=== PATIENT | female | born 1990 | race Caucasian/White ===

== ENCOUNTER 2016-08-01 12:52 | Emergency (ER) | payer MEDICAID ==
[2016-08-01 13:02] VITALS: BP 138/97
[2016-08-01 14:46] LABS: BILIRUBIN,URINE NEGATIVE (NEGATIVE)
[2016-08-01 14:48] LABS: HCG UR QUAL NEGATIVE; UA w/ MICROSCOPIC CHARGE YES
[2016-08-01 14:56] LABS: UR CULTURE IF IND INDICATED
--- NOTE | 2016-08-01 15:40 | ED Physician Documentation ---
History of Present Illness - Stated complaint Stated Complaint: CONGESTION/SOA - Chief complaint Chief Complaint: General - Additonal information Additional information: hx from pt 26 f denies preg to ER with congestions sinus pressure mostly maxillary greenish and slightly bloody nasal dc and a cough Review of Systems Nose: reports: Congestion, Sinus pressure / pain Respiratory: reports: Cough : denies: Now EGA PD PAST MEDICAL HISTORY - Past Medical History Past Medical History: Yes Psych: Anxiety - Past Surgical History Past Surgical History: No - Present Medications Home Medications: Ambulatory Orders Medication Instructions Recorded Confirmed Lorazepam [Ativan] 1 mg PO TID PRN #15 tablet 06/16/16 Amoxicillin/Potassium Clav 1 each PO Q12H #14 tablet 08/01/16 [Augmentin 875-125 Tablet] Fluticasone [Flonase] 1 sprays STEPHANE BID PRN #1 bottle 08/01/16 Ibuprofen [Motrin] 400 mg PO Q6H PRN #30 tablet 08/01/16 - Allergies Allergies/Adverse Reactions: Allergies Allergy/AdvReac Type Severity Reaction Status Date / Time grapefruit Allergy Edema Verified 06/16/16 21:32 - Social History Does the pt smoke?: Yes Smoking Status: Current every day smoker Does the pt drink ETOH?: Yes Does the pt have substance abuse?: No - Immunizations Immunizations are current?: Yes PD ED PE NORMAL - Vitals Vital signs reviewed: Yes - HEENT HEENT: Moist mucous membranes, Pharynx benign, Other (chad maxillary sinus swelling and TTP). No: Ears normal (dull no erythema bilaterally) - Cardiac Cardiac: RRR - Respiratory Respiratory: No respiratory distress, Clear bilaterally Results - Vitals Vitals: Vital Signs - 24 hr 08/01/16 12:57 Temperature 36.5 C Heart Rate 102 H Respiratory 16 Rate Blood Pressure 138/97 H O2 Saturation 96 Oxygen O2 Source Room air - Labs Labs: Laboratory Tests 08/01/16 14:30 Urine Color LT. YELLOW Urine Clarity CLEAR Urine pH 7.0 Ur Specific [place] <=1.005 Urine Protein NEGATIVE Urine Glucose (UA) NEGATIVE Urine Ketones NEGATIVE Urine Occult Blood NEGATIVE Urine Nitrite NEGATIVE Urine Bilirubin NEGATIVE Urine Urobilinogen 0.2 (NORMAL) Ur Leukocyte Esterase SMALL H Urine RBC None Seen Urine WBC 6-10 H Ur Squamous Epith Cells FEW Squamous Urine Bacteria Rare Ur Microscopic Review INDICATED Urine Culture Comments INDICATED Urine HCG, Qual NEGATIVE Departure - Departure Disposition: 01 Home, Self Care Clinical Impression: Alcoholism /alcohol abuse Sinusitis Qualifiers: Sinusitis location: unspecified location Chronicity: acute Recurrence: not specified as recurrent Qualified Code(s): J01.90 - Acute sinusitis, unspecified UTI (urinary tract infection) Qualifiers: Urinary tract infection type: acute cystitis Hematuria presence: without hematuria Qualified Code(s): N30.00 - Acute cystitis without hematuria Condition: Good Instructions: ED UTI Cystitis Female, ED Sinusitis Abx Tx Follow-Up: [facility] [Provider Group] [facility] [Provider Group] (call to establish care) Prescriptions: Amoxicillin/Potassium Clav [Augmentin 875-125 Tablet] 1 each PO Q12H #14 tablet Fluticasone [Flonase] 1 sprays STEPHANE BID PRN #1 bottle PRN Reason: allergies Ibuprofen [Motrin] 400 mg PO Q6H PRN #30 tablet PRN Reason: Pain Comments: Use the flonase one spray each nostril for 3 days The augmentin will treat the UTI as well as any sinus infection. Call the [facility] to establish care to address your other concerns. Stop drinking and stop smoking Discharge Date/Time: 08/01/16 15:53
== END 2016-08-01 15:53 | disposition home or self-care (01) ==
LOC: ED 12:52
DX: J01.90 Acute sinusitis, unspecified (principal); N30.00 Acute cystitis without hematuria; R07.9 Chest pain, unspecified; Z82.49 Family history of ischemic heart disease and other diseases of the circulatory system; F17.200 Nicotine dependence, unspecified, uncomplicated; F10.20 Alcohol dependence, uncomplicated
CPT/HCPCS: 81001; 81003; 81025; 87086; 99283; 99284

== ENCOUNTER 2016-09-13 14:20 | Outpatient (CLI) | payer MEDICAID | END 2016-09-13 14:21 | disposition home or self-care (01) | DX: Z00.00 Encounter for general adult medical examination without abnormal findings (principal); Z20.2 Contact with and (suspected) exposure to infections with a predominantly sexual mode of transmission ==

== ENCOUNTER 2017-05-30 05:13 | Emergency (ER) | payer MEDICAID ==
[2017-05-30] MEDS ORDERED: SODIUM CHLORIDE 0.9% 1,000 ML IV ONE (05:21)
[2017-05-30] MEDS ORDERED: LORazepam 2 MG/ML SYRINGE IVP STA (05:21)
--- NOTE | 2017-05-30 05:29 | ED Physician Documentation ---
History of Present Illness - Stated complaint Stated Complaint: ETOH WITHDRAWAL - Chief complaint Chief Complaint: General - History obtained from History obtained from: Patient, Family - History of Present Illness Timing: Today - Additonal information Additional information: Patient is a 26 year old female with a history of chronic alcohol abuse. According to father patient had been sober for 52 days. The patient went on a delgado over the last 3-4 days drinking about 3 bottles of liquor, a few bottles of champagne and other alcohol. Father states that the last drink was yesterday. Patient is only selectively answering questions. Patient states that she has been throwing up, but denies any fevers, or hallucinations. Review of Systems Constitutional: denies: Fever, Chills Eyes: reports: Reviewed and negative Ears: reports: Reviewed and negative Nose: reports: Reviewed and negative Throat: denies: Sore throat Cardiac: reports: Palpitations. denies: Chest pain / pressure Respiratory: denies: Cough, Wheezing GI: reports: Nausea, Vomiting : reports: Reviewed and negative Skin: denies: Rash, Lesions Neurologic: denies: Syncope, Confused, Altered mental status, Headache, Head injury Psychiatric: reports: Anxiety Immunocompromised: denies: Immunocompromised PD PAST MEDICAL HISTORY - Past Medical History Psych: Anxiety - Past Surgical History Past Surgical History: No - Present Medications Home Medications: Ambulatory Orders Medication Instructions Recorded Confirmed Ondansetron Odt [Zofran] 4 mg TL Q6H PRN #20 tablet 05/30/17 chlordiazePOXIDE [Librium] 25 mg PO DAILY #26 capsule 05/30/17 - Allergies Allergies/Adverse Reactions: Allergies Allergy/AdvReac Type Severity Reaction Status Date / Time grapefruit Allergy Edema Verified 05/30/17 05:22 - Social History Does the pt smoke?: Yes Smoking Status: Current every day smoker Does the pt drink ETOH?: Yes Does the pt have substance abuse?: No - Immunizations Immunizations are current?: Yes PD ED PE NORMAL - Vitals Vital signs reviewed: Yes - General General: Alert and oriented X 3, No acute distress, Well developed/nourished - HEENT HEENT: Atraumatic, PERRL, Pharynx benign - Neck Neck: Supple, no meningeal sign - Respiratory Respiratory: No respiratory distress, Clear bilaterally - Abdomen Abdomen: Soft, Non tender, Non distended - Derm Derm: Normal color, Warm and dry, No rash - Extremities Extremities: No deformity, No edema - Neuro Neuro: No motor deficit, No sensory deficit, Normal speech, Other (no tremor) Eye Opening: Spontaneous Motor: Obeys Commands Verbal: Oriented GCS Score: 15 PD ED PE EXPANDED - HEENT HEENT: Dry mucous membranes - Cardiac Cardiac: Tachy Results - Vitals Vitals: Vital Signs - 24 hr 05/30/17 05/30/17 05/30/17 05:17 05:56 06:19 Heart Rate 141 H 109 H 107 H Respiratory 15 15 20 Rate Blood Pressure 155/107 H 136/96 H 133/100 H O2 Saturation 99 100 99 Oxygen O2 Source Room air - EKG (time done) 0536 Rate: Rate (enter#) (110) Rhythm: Sinus tachycardia [place]: Normal Intervals: Normal [place] QRS: Normal Ischemia: Normal ST segments Compare to prior EKG: Old EKG unavailable - Labs Labs: Laboratory Tests 05/30/17 05/30/17 05/30/17 05:40 05:40 05:40 WBC 6.8 RBC 4.47 Hgb 13.8 Hct 41.0 MCV 91.7 MCH 30.9 MCHC 33.7 RDW 13.4 Plt Count 297 MPV 8.1 Neut # 3.3 Lymph # 2.7 [place] # 0.7 Eos # 0.0 Baso # 0.0 Absolute Nucleated RBC 0.01 Nucleated RBC % 0.1 Sodium 137 Potassium 3.8 Chloride 98 L Carbon Dioxide 26 Anion Gap 13.0 BUN 11 Creatinine 0.8 Estimated GFR (MDRD) 87 L Glucose 101 H Calcium 8.8 Phosphorus 3.9 Magnesium 2.1 Total Bilirubin 1.5 H AST 49 H ALT 38 Alkaline Phosphatase 85 Total Protein 7.9 Albumin 4.4 Globulin 3.5 Albumin/Globulin Ratio 1.3 Lipase 17 L TSH 2.69 Serum HCG, Qual Urine Color Urine Clarity Urine pH Ur Specific [place] Urine Protein Urine Glucose (UA) Urine Ketones Urine Occult Blood Urine Nitrite Urine Bilirubin Urine Urobilinogen Ur Leukocyte Esterase Ur Microscopic Review Urine Culture Comments Urine HCG, Qual Ethyl Alcohol 300.2 05/30/17 05/30/17 05:40 05:50 WBC RBC Hgb Hct MCV MCH MCHC RDW Plt Count MPV Neut # Lymph # [place] # Eos # Baso # Absolute Nucleated RBC Nucleated RBC % Sodium Potassium Chloride Carbon Dioxide Anion Gap BUN Creatinine Estimated GFR (MDRD) Glucose Calcium Phosphorus Magnesium Total Bilirubin AST ALT Alkaline Phosphatase Total Protein Albumin Globulin Albumin/Globulin Ratio Lipase TSH Serum HCG, Qual NEGATIVE Urine Color YELLOW Urine Clarity CLEAR Urine pH 6.0 Ur Specific [place] <=1.005 Urine Protein NEGATIVE Urine Glucose (UA) NEGATIVE Urine Ketones NEGATIVE Urine Occult Blood NEGATIVE Urine Nitrite NEGATIVE Urine Bilirubin NEGATIVE Urine Urobilinogen 0.2 (NORMAL) Ur Leukocyte Esterase NEGATIVE Ur Microscopic Review NOT INDICATED Urine Culture Comments NOT INDICATED Urine HCG, Qual NEGATIVE Ethyl Alcohol PD MEDICAL DECISION MAKING - ED course Complexity details: reviewed old records, reviewed results, re-evaluated patient , considered differential, d/w patient, d/w family ED course: Patient was seen and examined at bedside. Patient was tachycardic and placed on a monitor. ekg was performed and showed sinus tach. Labs were drawn and patient was treated with a fluid bolus, librium and ativan. Patient's tachycardia and blood pressure improved. Patient's blood alcohol level was found to be 300 so it was unlikely patient was going through full withdrawal. a lengthy discussion was had with the patient and her father concerning the options and the severity of withdrawal. Patient and father felt comfortable going home, as they have done this before. Patient was treated with an additional 25 mg of librium and was stable for discharge with outpatient follow up. Departure - Departure Disposition: 01 Home, Self Care Clinical Impression: Alcoholism /alcohol abuse Condition: Good Instructions: ED Withdrawal Alcohol Follow-Up: primary,care provider [Other] - Within 3 Days Prescriptions: chlordiazePOXIDE [Librium] 25 mg PO DAILY #26 capsule Ondansetron Odt [Zofran] 4 mg TL Q6H PRN #20 tablet PRN Reason: Nausea / Vomiting Comments: Your symptoms today are likely secondary to your alcohol abuse. Alcohol withdrawal can be very serious, even life threatening. If you are unable to go through the process with your family you should return to the emergency department for help. You should return to the emergency department for shakes, hallucinations, uncontrolled hr. new worseing or uncontrollable symptoms.
[2017-05-30] MEDS ORDERED: chlordiazePOXIDE 25 MG CAPSULE PO STA ×2 (05:31→06:29)
[2017-05-30] MEDS ORDERED: ONDANSETRON 4 MG/2 ML VIAL IVP STA (05:31)
[2017-05-30] MEDS ORDERED: ONDANSETRON 4 MG/2 ML VIAL ONE (05:37)
[2017-05-30] MEDS ORDERED: LORazepam 2 MG/ML VIAL ONE (05:37)
[2017-05-30] MEDS ORDERED: chlordiazePOXIDE 25 MG CAPSULE PO ONE ×2 (05:53→06:35)
[2017-05-30 06:05] LABS: BASOPHILS % (AUTO) 0.6 %; EOSINOPHILS % (AUTO) 0.6 %; HGB - HEMOGLOBIN 13.8 g/dL (12.0-16.0); LYMPHOCYTES # (AUTO) 2.7 10^3/uL (1.5-3.5); LYMPHOCYTES % (AUTO) 39.5 %; MEAN CORPUSCULAR HEMOGLOBIN 30.9 pg (27.0-31.0); MEAN CORPUSCULAR HGB CONC 33.7 g/dL (32.0-36.0); MEAN CORPUSCULAR VOLUME 91.7 fL (81.0-99.0); MEAN PLATELET VOLUME 8.1 fL (7.9-10.8); MONOCYTES # (AUTO) 0.7 10^3/uL (0.0-1.0); MONOCYTES % (AUTO) 10.7 %; NEUTROPHILS # (AUTO) 3.3 10^3/uL (1.5-6.6); NEUTROPHILS % (AUTO) 48.6 %; NUCLEATED RED BLOOD CELLS AUTO 0.1 /100WBC; RED BLOOD COUNT 4.47 10^6/uL (4.20-5.40); RED CELL DISTRIBUTION WIDTH 13.4 % (12.0-15.0); UNCORRECTED WHITE BLOOD COUNT 6.8 x10^3/uL; WHITE BLOOD COUNT 6.8 x10^3/uL (4.8-10.8)
[2017-05-30 06:07] LABS: ALBUMIN/GLOBULIN RATIO 1.3 (1.0-2.2); BILIRUBIN,TOTAL 1.5 mg/dL (0.2-1.0); CALCIUM 8.8 mg/dL (8.5-10.3); CREATININE 0.8 mg/dL (0.4-1.0); MAGNESIUM 2.1 mg/dL (1.7-2.8); PHOSPHORUS 3.9 mg/dL (2.5-4.6); POTASSIUM 3.8 mmol/L (3.5-5.0); TOTAL PROTEIN 7.9 g/dL (6.7-8.2)
[2017-05-30 06:20] LABS: BILIRUBIN,URINE NEGATIVE (NEGATIVE)
[2017-05-30 06:22] LABS: HCG UR QUAL NEGATIVE; UA CHARGE (STRIP ONLY) YES; UR CULTURE IF IND NOT INDICATED
[2017-05-30 06:31] VITALS: BP 125/96
== END 2017-05-30 06:45 | disposition home or self-care (01) ==
LOC: ED 05:13
DX: R11.2 Nausea with vomiting, unspecified (principal); F10.20 Alcohol dependence, uncomplicated; Y90.8 Blood alcohol level of 240 mg/100 ml or more; R00.0 Tachycardia, unspecified; F17.200 Nicotine dependence, unspecified, uncomplicated
CPT/HCPCS: 36415; 80053; 80306; 80320; 81003; 81025; 83690; 83735; 84100; 84443; 84703; 85025; 93005; 96361; 96374; 96375; 99284; A9270; J2060; 81001; 87086

== ENCOUNTER 2017-09-05 10:39 | Outpatient (CLI) | payer MEDICAID ==
[2017-09-05 11:17] LABS: BASOPHILS % (AUTO) 0.3 %; EOSINOPHILS % (AUTO) 0.5 %; HGB - HEMOGLOBIN 12.5 g/dL (12.0-16.0); LYMPHOCYTES # (AUTO) 2.2 10^3/uL (1.5-3.5); MEAN CORPUSCULAR HEMOGLOBIN 31.3 pg (27.0-31.0); MEAN CORPUSCULAR HGB CONC 34.3 g/dL (32.0-36.0); MEAN CORPUSCULAR VOLUME 91.4 fL (81.0-99.0); MEAN PLATELET VOLUME 8.9 fL (7.9-10.8); MONOCYTES # (AUTO) 0.6 10^3/uL (0.0-1.0); NEUTROPHILS # (AUTO) 6.1 10^3/uL (1.5-6.6); NEUTROPHILS % (AUTO) 68.2 %; PLT - PLATELET COUNT 216 10^3/uL (130-450); RED BLOOD COUNT 3.98 10^6/uL (4.20-5.40)
[2017-09-05 11:20] LABS: BILIRUBIN,URINE NEGATIVE (NEGATIVE); GLUCOSE, URINE (UA) NEGATIVE (NEGATIVE); KETONES,URINE (UA) NEGATIVE (NEGATIVE); LEUKOCYTE ESTERASE, URINE TRACE (NEGATIVE); NITRITE,URINE NEGATIVE (NEGATIVE); OCCULT BLOOD,URINE NEGATIVE (NEGATIVE); PH,URINE 6.5 PH (5.0-7.5); PROTEIN,URINE NEGATIVE (NEGATIVE); UROBILINOGEN,URINE 0.2 (NORMAL) E.U./dL (NORMAL)
[2017-09-05 11:23] LABS: CLARITY,URINE CLEAR (CLEAR)
[2017-09-05 11:37] LABS: CREATININE,URINE 25.8 mg/dL
[2017-09-05 11:38] LABS: BACTERIA,URINE Rare /HPF (None Seen); RBC,URINE 0-5 /HPF (0-5); SQUAMOUS EPITHELIAL CELL,UR FEW Squamous (<= Few)
[2017-09-05 11:49] LABS: ALBUMIN/GLOBULIN RATIO 1.4 (1.0-2.2); BILIRUBIN,TOTAL 0.7 mg/dL (0.2-1.0); CALCIUM 8.9 mg/dL (8.5-10.3); CREATININE 0.5 mg/dL (0.4-1.0); TOTAL PROTEIN 6.8 g/dL (6.7-8.2); URIC ACID 2.4 mg/dL (2.6-7.2)
[2017-09-05 12:00] LABS: TOTAL PROTEIN,URINE TIMED < 6 mg/dL
[2017-09-06 13:41] LABS: HIV AG/AB 4TH GEN NON-REACTIVE (NON-REACTIVE)
[2017-09-06 13:58] LABS: HEPATITIS C ANTIBODY NON-REACTIVE (NON-REACTIVE)
[2017-09-06 14:12] LABS: HEPATITIS B SURFACE ANTIGEN NON-REACTIVE (NON-REACTIVE)
== END 2017-09-05 10:40 | disposition home or self-care (01) ==
LOC: LAB 10:39
PROVIDERS: ATTEND Obstetrics & Gynecology
DX: F10.21 Alcohol dependence, in remission (principal); Z36.9 Encounter for antenatal screening, unspecified
CPT/HCPCS: 36415; 80053; 81001; 81599; 82570; 84156; 84550; 85025; 86762; 86803; 86850; 86900; 86901; 87086; 87340; 87389

== ENCOUNTER 2017-09-06 08:00 | Outpatient (CLI) | payer MEDICAID ==
[2017-09-06 11:13] LABS: COLLECTION TIME,URINE 1440 min; TOTAL VOLUME,URINE 1800 mL
[2017-09-06 11:26] LABS: CREATININE,URINE 73.9 mg/dL
== END 2017-09-06 08:01 | disposition home or self-care (01) ==
LOC: LAB.R 08:00
PROVIDERS: ATTEND Obstetrics & Gynecology
DX: F10.21 Alcohol dependence, in remission (principal)
CPT/HCPCS: 82575

== ENCOUNTER 2017-09-19 10:15 | Outpatient (CLI) | payer MEDICAID ==
--- NOTE | 2017-09-19 14:27 | Ultrasound Report ---
FIRST TRIMESTER OB ULTRASOUND: 09/19/2017 CLINICAL INDICATION: Abnormality on outside ultrasound. TECHNIQUE: Real-time scanning was performed with international account representative static images obtained. LAST MENSTRUAL PERIOD 06/30/2017 Clinical Age 11 weeks 4 days LMP US Age 11 weeks 5 days CRL EFW [place] -- EFW% [place] -- Heart Rate 154 bpm EDC 04/12/2018 LMP US EDC 04/05/2018 CRL BPD [place] -- HC [place] -- AC Hadlock -- FL Hadlock -- Presentation variable Placental Location posterior/mat Rt Cervical Length -- Amniotic Fluid -- FINDINGS There is a single viable intrauterine gestation, in variable position. heart rate is 154 BPM. The placenta is posterior, and appears unremarkable. No perigestational hemorrhage is identified. The gestational sac appears regular. By size, the fetus measures 11 weeks 5 days by crown rump length (11 weeks 4 days by LMP). No free fluid or adnexal lesion is appreciated. IMPRESSION: SINGLE VIABLE INTRAUTERINE GESTATION, WITH SIZE IN KEEPING WITH LMP DATING. NO EVIDENCE OF PERIGESTATIONAL HEMORRHAGE OR AMNIOTIC BANDS AT THIS TIME. TD: 09/19/2017 12:08 KERRY
== END 2017-09-19 10:16 | disposition home or self-care (01) ==
LOC: DI 10:15
PROVIDERS: ATTEND Obstetrics & Gynecology
DX: O28.3 Abnormal ultrasonic finding on antenatal screening of mother (principal); Z3A.11 11 weeks gestation of pregnancy
CPT/HCPCS: 76801

== ENCOUNTER 2017-10-21 11:10 | Outpatient (CLI) | payer MEDICAID | END 2017-10-21 11:11 | disposition home or self-care (01) | LOC: LAB.N 11:10 | PROVIDERS: ATTEND Obstetrics & Gynecology | DX: Z13.79 Encounter for other screening for genetic and chromosomal anomalies (principal) | CPT/HCPCS: 36415; 81511; 81599; 82105; 82677; 84702; 86336 ==

== ENCOUNTER 2017-11-01 14:44 | Outpatient (CLI) | payer OTHER, MEDICAID | END 2017-11-01 14:45 | disposition critical access hospital (66) | LOC: EMS 14:44 | PROVIDERS: ATTEND Surgery | DX: O99.89 Other specified diseases and conditions complicating pregnancy, childbirth and the puerperium (principal); S49.92XA Unspecified injury of left shoulder and upper arm, initial encounter; V43.53XA Car driver injured in collision with pick-up truck in traffic accident, initial encounter; Y92.413 State road as the place of occurrence of the external cause | CPT/HCPCS: A0425; A0429 ==

== ENCOUNTER 2017-11-01 14:47 | Emergency (ER) | payer OTHER, MEDICAID ==
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
[2017-11-01 16:05] VITALS: BP 117/82
== END 2017-11-01 16:17 | disposition home or self-care (01) ==
LOC: EDUNIT# → ED 14:47
DX: S41.122A Laceration with foreign body of left upper arm, initial encounter (principal); S40.812A Abrasion of left upper arm, initial encounter; V43.52XA Car driver injured in collision with other type car in traffic accident, initial encounter; Y92.411 Interstate highway as the place of occurrence of the external cause; O99.332 Smoking (tobacco) complicating pregnancy, second trimester; F17.200 Nicotine dependence, unspecified, uncomplicated; Z3A.17 17 weeks gestation of pregnancy
CPT/HCPCS: 12001; 99283

== ENCOUNTER 2017-11-24 07:37 | Outpatient (CLI) | payer MEDICAID ==
--- NOTE | 2017-11-25 14:53 | Ultrasound Report ---
OB ULTRASOUND: 11/24/2017 HISTORY: For anatomy scan. TECHNIQUE: Real-time scanning by the media aid with saved static images reviewed. Transabdominal approach for global evaluation. No transvaginal scanning performed. FINDINGS First ultrasound 08/23/2017, EGA by that ultrasound 21 weeks 1 day, YADI 2017. biometry today: Biparietal diameter 4.9 cm, 20 weeks 5 days. Head circumference 18.7 cm, 21 weeks 0 days. Abdominal circumference 15.6 cm, 20 weeks 5 days. Femur length 3.4 cm, 20 weeks 5 days. Age by composite ultrasound measurements today 20 weeks 6 days, YADI 04/07/2018. Estimated weight 375 grams, 26th percentile. cardiac activity 148 BPM. Cephalic presentation. Placenta posterior with 3-vessel umbilical cord. Marginal cord insertion onto the placenta. Cervix long and closed 4.9 cm. Amniotic fluid volume subjectively normal. A survey of anatomy includes facial and intracranial structures, spine, heart and outflow tracts, stomach, diaphragm, kidneys, bladder, cord insertion, and all 4 extremities. No anomalies are detected. Adnexal structures unremarkable. IMPRESSION: SINGLE INTRAUTERINE GESTATION. AGE BY COMPOSITE ULTRASOUND MEASUREMENTS TODAY 20 WEEKS 6 DAYS, CONCORDANT WITH THE EXPECTED AGE BY FIRST ULTRASOUND. NO ANOMALIES ARE IDENTIFIED. THERE IS A MARGINAL INSERTION OF THE UMBILICAL CORD ONTO THE POSTERIOR PLACENTA. TD: 11/24/2017 16:13 MTDEryn
== END 2017-11-24 07:38 | disposition home or self-care (01) ==
LOC: DI 07:37
PROVIDERS: ATTEND Obstetrics & Gynecology
DX: Z36.9 Encounter for antenatal screening, unspecified (principal)
CPT/HCPCS: 76811

== ENCOUNTER 2018-01-01 14:24 | Outpatient (CLI) | payer MEDICAID ==
[2018-01-01 14:47] LABS: BILIRUBIN,URINE NEGATIVE (NEGATIVE); GLUCOSE, URINE (UA) NEGATIVE (NEGATIVE); KETONES,URINE (UA) NEGATIVE (NEGATIVE); LEUKOCYTE ESTERASE, URINE NEGATIVE (NEGATIVE); NITRITE,URINE NEGATIVE (NEGATIVE); OCCULT BLOOD,URINE NEGATIVE (NEGATIVE); PROTEIN,URINE NEGATIVE (NEGATIVE); UROBILINOGEN,URINE 0.2 (NORMAL) E.U./dL (NORMAL)
[2018-01-01 14:48] LABS: CLARITY,URINE CLEAR (CLEAR)
[2018-01-01 14:56] LABS: BACTERIA,URINE Rare /HPF (None Seen); RBC,URINE None Seen /HPF (0-5); SQUAMOUS EPITHELIAL CELL,UR MANY Squamous (<= Few)
[2018-01-01 15:52] LABS: MEAN CORPUSCULAR HEMOGLOBIN 31.8 pg (27.0-31.0); MEAN CORPUSCULAR HGB CONC 33.9 g/dL (32.0-36.0); MEAN CORPUSCULAR VOLUME 93.7 fL (81.0-99.0); MEAN PLATELET VOLUME 8.6 fL (7.9-10.8); RED BLOOD COUNT 3.48 10^6/uL (4.20-5.40); RED CELL DISTRIBUTION WIDTH 13.1 % (12.0-15.0); WHITE BLOOD COUNT 12.3 x10^3/uL (4.8-10.8)
== END 2018-01-01 14:25 | disposition home or self-care (01) ==
LOC: LAB 14:24
PROVIDERS: ATTEND Obstetrics & Gynecology
DX: Z34.90 Encounter for supervision of normal pregnancy, unspecified, unspecified trimester (principal)
CPT/HCPCS: 36415; 81001; 82950; 85027; 86850

== ENCOUNTER 2018-02-03 13:11 | Outpatient (CLI) | payer MEDICAID ==
--- NOTE | 2018-02-03 16:58 | Ultrasound Report ---
Procedure Date: 02/03/2018 Accession Number: [id number] / [id number] Procedure: US - OB F/U or Repeat CPT Code: FULL RESULT: EXAM: COMPLETE OBSTETRICAL ULTRASOUND EXAM DATE: 02/03/2018 02:06 PM. CLINICAL HISTORY: anatomic survey. COMPARISON: OB detailed evaluation 11/24/2017 7:54 am. TECHNIQUE: Real-time sonographic evaluation of the fetus performed by the employee relations administrator. Multiple public health representative static images were saved for review. DATING: Established EGA 3 weeks/2 days with YADI 04/05/18 based on First ultrasound 09/19/17.. EGA 3 weeks/4 days with YADI 04/03/18 based on the current ultrasound. GENERAL EVALUATION Leyva . Cardiac activity: 146 bpm. movement: Visualized. Presentation: Cephalic. Placenta: Posterior position. No evidence for previa. Umbilical cord: 3 vessel cord. Central placental cord origin. Amniotic fluid: Subjectively normal. MVP 4.3 cm. BIOMETRY Bi-Parietal Diameter (BPD): 7.9 cm, 32 weeks/0 days Head Circumference (HC): 29.5 cm, 32 weeks/4 days Abdominal Circumference (AC): 26.2 cm, 30 weeks/6 days Femur Length (FL): 59 cm, 30 weeks/6 days The placenta is 3.9 cm away from the cervix. The cord insertion appears normal. Estimated Weight: 1658 gm. MATERNAL STRUCTURES Uterus: Unremarkable. Cervix: Long and closed. Transabdominal length 3.70 cm. Right ovary/adnexa: Unremarkable. Left ovary/adnexa: Unremarkable. Free fluid: None. IMPRESSION: 1. Leyva live intrauterine with gestational age 31 weeks and 4 days based on current ultrasound. 2. Estimated weight is within expected limits for assigned dating. 3. Subjectively normal cord insertion. RADIA
== END 2018-02-03 13:12 | disposition home or self-care (01) ==
LOC: DI 13:11
PROVIDERS: ATTEND Obstetrics & Gynecology
DX: Z36.2 Encounter for other antenatal screening follow-up (principal)
CPT/HCPCS: 76816

== ENCOUNTER 2018-03-18 13:05 | Outpatient (CLI) | payer MEDICAID ==
--- NOTE | 2018-03-18 17:13 | Ultrasound Report ---
Reason: ENCOUNTER FOR SCREENING FOR GROWTH Procedure Date: 03/18/2018 Accession Number: [id number] / [id number] Procedure: US - OB F/U or Repeat CPT Code: FULL RESULT: EXAM: COMPLETE OBSTETRICAL ULTRASOUND EXAM DATE: 03/18/2018 02:19 PM. CLINICAL HISTORY: anatomic survey. COMPARISON: OB follow up or repeat 02/03/2018 1:38 PM OB detailed evaluation 11/24/2017 7:54 AM. TECHNIQUE: Real-time sonographic evaluation of the fetus performed by the day care director. Multiple packaging sales representative static images were saved for review. DATING: Established EGA 36 weeks and 6 days with YADI 04/05/2018 based on first ultrasound. EGA 36 weeks and 5 days with YADI 04/06/2018 based on the current ultrasound. GENERAL EVALUATION Leyva . Cardiac activity: 130 bpm. movement: Visualized. Presentation: Cephalic. Placenta: Right lateral position. No evidence for previa. Amniotic fluid: Subjectively normal. BIOMETRY Bi-Parietal Diameter (BPD): 9 cm, 36 weeks 3 days Head Circumference (HC): 33.9 cm, 39 weeks 0 days Abdominal Circumference (AC): 32.5 cm, 36 weeks 3 days Femur Length (FL): 7.1 cm, 36 weeks 3 days Estimated Weight: 2974 gm, 36 percentile for 36 weeks 5 days. MATERNAL STRUCTURES Uterus: Unremarkable. Cervix: Long and closed. Transabdominal length 4.7 cm. The ovaries were not well seen. No free fluid is identified. IMPRESSION: 1. Leyva live intrauterine with gestational age weeks/days based on source of assigned dating. 2. Estimated weight is within expected limits for assigned dating. 3. Normal anatomic survey. No anatomic abnormalities are detected at this time. RADIA
== END 2018-03-18 13:06 | disposition home or self-care (01) ==
LOC: DI 13:05
PROVIDERS: ATTEND Obstetrics & Gynecology
DX: Z36.4 Encounter for antenatal screening for fetal growth retardation (principal)
CPT/HCPCS: 76816

== ENCOUNTER 2018-03-18 23:57 | Outpatient (CLI) | payer MEDICAID ==
[2018-03-19 00:10] VITALS: BP 122/85
== END 2018-03-19 00:40 | disposition home or self-care (01) ==
LOC: WFO 23:57 → FBP 23:59 → WFO 03-19 00:40
PROVIDERS: ATTEND Obstetrics & Gynecology
DX: O99.89 Other specified diseases and conditions complicating pregnancy, childbirth and the puerperium (principal); M53.3 Sacrococcygeal disorders, not elsewhere classified; Z3A.00 Weeks of gestation of pregnancy not specified
CPT/HCPCS: 99212

== ENCOUNTER 2018-03-20 09:51 | Outpatient (CLI) | payer MEDICAID | END 2018-03-20 09:52 | disposition home or self-care (01) | LOC: LAB.R 09:51 | PROVIDERS: ATTEND Obstetrics & Gynecology | DX: Z36.85 Encounter for antenatal screening for Streptococcus B (principal) | CPT/HCPCS: 87077; 87081 ==

== ENCOUNTER 2018-04-01 13:42 | Outpatient (CLI) | payer MEDICAID ==
[2018-04-01 13:59] VITALS: BP 121/80
[2018-04-01 14:46] LABS: RUPTURE OF MEMBRANES PLUS NEGATIVE (NEGATIVE)
--- NOTE | 2018-04-01 15:41 | PROVIDER PROGRESS NOTE ---
Subjective - Prog Note Date Prog Note Date: 04/01/18 Prog Note Time: 16:00 - Subjective Subjective: Mrs. Lind is a 27-year-old white 2 para 0010 (EAB x1) at 39 weeks and 2 days gestation. Who reports possible leaking fluid for the past 4 hours. She has had intermittent contractions but nothing organized into a pattern. She reports movement. She reports no symptoms consistent with preeclampsia. She is known to be GBS positive. She has no fevers chills or vaginal discharge. She is status post LEEP procedure in January 2017 for DUNCAN 3. Objective - Vital Signs/Intake & Output Vital Signs: Vital Signs x48h Temp Pulse Resp BP Pulse Ox 04/01/18 13:58 98.6 F 92 16 121/80 99 - Lab Results Other Labs: Lab Results x24hrs 04/01/18 Range/Units Unknown Membranes Rupture NEGATIVE (NEGATIVE) Exam - Exam Vital Signs: Vital Signs (72 hours) 04/01/18 13:58 Temperature 98.6 F Heart Rate [ 92 Brachial] Respiratory 16 Rate Blood Pressure 121/80 [Left Brachial artery] O2 Saturation 99 General: Alert, Oriented x3, No acute distress HEENT: Atraumatic, Mucous membr. moist/pink Abdomen: No tenderness, Other (Uterus is of appropriate size and nontender. Vertex presentation confirmed by Pierre's. Mild to minimal contractions) Assessment/Plan - Assessment/Plan Assessment: Patient is a term with not currently in labor and membranes intact. She may be approaching the prodrome of labor and was given encouragement. Plan: Patient discharged home with instructions. She understands if regular contractions develop every 5 minutes for 2 hours that she should return. She is also to return if she believes her membranes or leaking.
== END 2018-04-01 15:23 | disposition home or self-care (01) ==
LOC: WFO 13:42 → FBP 13:43 → WFO 15:23
PROVIDERS: ATTEND Obstetrics & Gynecology
DX: O99.820 Streptococcus B carrier state complicating pregnancy (principal); O99.89 Other specified diseases and conditions complicating pregnancy, childbirth and the puerperium; D06.9 Carcinoma in situ of cervix, unspecified; Z3A.39 39 weeks gestation of pregnancy
CPT/HCPCS: 84112; 99213

== ENCOUNTER 2018-04-02 18:19 | Inpatient (IN) | payer MEDICAID ==
[2018-04-02] MEDS ORDERED: OXYTOCIN/SODIUM CHLORIDE 250 ML IV ONE (19:20)
[2018-04-02] MEDS ORDERED: SODIUM CHLORIDE FLUSH 0.9% 10 ML SYRINGE IVP PRN (19:20)
[2018-04-02] MEDS ORDERED: ONDANSETRON 4 MG/2 ML VIAL IVP PRN ×2 (19:20→22:38)
[2018-04-02] MEDS ORDERED: fentaNYL 100 MCG/2 ML VIAL IVP PRN (19:20)
--- NOTE | 2018-04-02 19:46 | HISTORY & PHYSICAL EXAMINATION ---
Admit History - Visit Reason Visit Reason: Contractions, Other (DUNCAN 3 History of alcoholism) - : 2 Parity: 0 Premature: 0 Ectopic: 0 : 1 Care: positive: Other ( [facility]) Risk/History: positive: Other (Neglected DUNCAN 3 DUNCAN [address] Walker by colposcopic biopsy. LEEP procedure was recommended but patient was lost due to follow-up secondary to alcohol abuse. She was referred to gynecologic oncology, Dr. 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 Periodic colposcopy has been performed and no evidence of invasion. Patient had a history of alcohol abuse and after inpatient treatment has been sober.) Complications This : positive: None, Other (GBS culture positive) Smoking Status: Current every day smoker - Mother's Labs Mother's Blood Type: positive: A Mother's RH: positive: Positive GBS: positive: Group B Strep Positive Rubella Status: positive: Immune (Other pertinent labs: Urinalysis normal; Quad marker normal; Hepatitis B surface antigen negative 1 hour Glucola check normal 89; Baseline's hemoglobin 12.3, platelets 238;) Meds/Allgy - Home Medications Home Medications: Ambulatory Orders Medication Instructions Recorded Confirmed Pnv95/Ferrous Fumarate/FA 1 each PO 11/01/17 [ Formula] - Allergies Allergies/Adverse Reactions: Allergies Allergy/AdvReac Type Severity Reaction Status Date / Time grapefruit AdvReac Edema Verified 11/01/17 14:53 Review of Systems - Constitutional Constitutional: reports: Fatigue - Eyes Eyes: reports: Other (No symptoms reported currently) - Ears, Nose & Throat Ears, Nose & Throat: reports: Other (No symptoms reported currently) - Cardiovascular Cariovascular: reports: Other (No symptoms reported currently) - Respiratory Respiratory: reports: Other (No symptoms reported currently) - Genitourinary Genitourinary: reports: Other (No symptoms reported currently) - Musculoskeletal Musculoskeletal: reports: Other (No symptoms reported currently) - Integumentary Integumentary: reports: Other (No symptoms reported currently) - Neurological Neurological: reports: Other (No symptoms reported currently) - Psychiatric Psychiatric: reports: Other (No symptoms reported currently) - Endocrine Endocrine: reports: Other (No symptoms reported currently) - Hematologic/Lymphatic Hematologic/Lymphatic: reports: Other (No symptoms reported currently) - All Other Systems All Other Systems: reports: Other (No symptoms reported currently) Physical - Abdominal Exam Vital Signs: Temp Pulse Resp BP Pulse Ox 97.9 F 70 18 126/77 99 04/02/18 18:31 04/02/18 18:31 04/02/18 18:31 04/02/18 18:31 04/02/18 18:31 Contraction Intensity: positive: Moderate Uterine Resting Tone: positive: Soft - Monitoring Strip Review: positive: Category I - Presentation Presentation: positive: Vertex - Vaginal Exam Membranes: positive: Membranes intact Dilation (in cm): 4 Effacement (%): 80% Station: positive: 0 Cervical Position: positive: Midposition - Speculum Exam Speculum Exam Performed: positive: No - Other Notes Labor Progress Note/Additional Text: HEENT exam: Supple neck no thyromegaly dentition in good repair moist mucous membranes Lungs clear to auscultation Cardiovascular: Regular heartbeat no significant murmur gallop or rub Abdomen: No organomegaly no right upper quadrant tenderness no other tenderness Uterus: Moderate contractions every 5 minutes; normal resting tone External genitalia no lesions Cervix 4 cm 0 station (nursing exam) Neurologic: Sensory and motor function grossly intact; patellar reflexes 2+ and equal Skin: No rashes or lesions Extremities: No pedal edema Assessment: Patient has made significant change from last night's cervical exam. She is most likely in the latent phase of labor. Cervix is inducible. Given her GBS status penicillin prophylaxis will begin now per protocol. weight is estimated at 7.5 pounds and the bony pelvis seems adequate. heart tracing is category 1 and there is no concerns about well-being. Plan: Admit Begin GBS prophylaxis Analgesic as desired. Plan for Labor - Plan For Labor I expect patient to be DC'd or transferred within 96 hours.: Yes Plan for Labor: * GBS prophylaxis; * Analgesia is required; * Anticipate vaginal delivery
[2018-04-02] MEDS ORDERED: PENICILLIN G POTASSIUM 5,000,000 UNIT in SODIUM CHLORIDE 0.9% MINIBAG 100 ML IV SCH (20:00)
[2018-04-02] MEDS: LACTATED RINGERS 1,000 ML IV SCH ×2 (20:16→23:14)
[2018-04-02 20:32] LABS: BASOPHILS # (AUTO) 0.1 10^3/uL (0.0-0.1); BASOPHILS % (AUTO) 0.9 %; EOSINOPHILS # (AUTO) 0.1 10^3/uL (0.0-0.7); EOSINOPHILS % (AUTO) 0.5 %; HGB - HEMOGLOBIN 12.1 g/dL (12.0-16.0); LYMPHOCYTES # (AUTO) 3.3 10^3/uL (1.5-3.5); LYMPHOCYTES % (AUTO) 22.5 %; MEAN CORPUSCULAR HEMOGLOBIN 30.9 pg (27.0-31.0); MEAN CORPUSCULAR HGB CONC 33.7 g/dL (32.0-36.0); MEAN CORPUSCULAR VOLUME 91.9 fL (81.0-99.0); MEAN PLATELET VOLUME 9.7 fL (7.9-10.8); MONOCYTES # (AUTO) 0.8 10^3/uL (0.0-1.0); MONOCYTES % (AUTO) 5.2 %; NEUTROPHILS # (AUTO) 10.5 10^3/uL (1.5-6.6); NEUTROPHILS % (AUTO) 70.9 %; PLT - PLATELET COUNT 283 10^3/uL (130-450); RED BLOOD COUNT 3.91 10^6/uL (4.20-5.40); RED CELL DISTRIBUTION WIDTH 13.5 % (12.0-15.0); WHITE BLOOD COUNT 14.9 x10^3/uL (4.8-10.8)
--- NOTE | 2018-04-02 20:39 | PROVIDER PROGRESS NOTE ---
Labor Progress Note - Uterine Monitoring Uterine Monitoring Mode: positive: External toco Contraction Frequency (min/apart): Q 3-5min Contraction Intensity: positive: Mild to moderate Uterine Resting Tone: positive: Soft - Monitoring Monitor Mode: positive: External ultrasound Heart Rate Baseline: 135-140 Heart Rate Variability: positive: Moderate (6-25 bmp) Accelerations: positive: Present, 15x15 Decelerations: positive: None Strip Review: positive: Category I - Vaginal Exam Dilation (in cm): 6 Effacement (%): 100% Station: 0 Cervical Position: Anterior - Labor Progress Note Labor Progress Note/Additional Text: Patient entering active phase of labor. No well-being concerns First bag of IV penicillin being infused
[2018-04-02] MEDS ORDERED: fent/BUPIV 2 MCG/0.125% 250 ML EP ONE (21:25)
[2018-04-02] MEDS ORDERED: LACTATED RINGERS 500 ML IV SCH (22:38)
[2018-04-02] MEDS ORDERED: NALOXONE 0.4 MG/ML VIAL IVP PRN (22:38)
[2018-04-02] MEDS ORDERED: NALBUPHINE 10 MG/ML AMP IVP PRN (22:38)
[2018-04-02] MEDS ORDERED: fent/BUPIV 2 MCG/0.125% 250 ML EP PRN (22:38)
[2018-04-02] MEDS ORDERED: diphenhydrAMINE INJ 50 MG/ML VIAL IVP PRN (22:38)
[2018-04-02] MEDS ORDERED: ePHEDrine 50 MG/ML VIAL IVP PRN (22:38)
[2018-04-02] MEDS ORDERED: METOCLOPRAMIDE 10 MG/2 ML VIAL IVP PRN (22:38)
[2018-04-03] MEDS ORDERED: PENICILLIN G POTASSIUM 2,500,000 UNIT in SODIUM CHLORIDE 0.9% 100ML 100 ML IV SCH ×2
[2018-04-03] MEDS ORDERED: SODIUM CHLORIDE FLUSH 0.9% 10 ML SYRINGE IVP SCH (01:00)
--- NOTE | 2018-04-03 01:55 | PROVIDER PROGRESS NOTE ---
Labor Progress Note - Uterine Monitoring Contraction Frequency (min/apart): q3-5 Contraction Intensity: positive: Moderate Uterine Resting Tone: positive: Soft - Monitoring Monitor Mode: positive: External ultrasound Heart Rate Baseline: 120-125 Heart Rate Variability: positive: Minimal (0-5 bpm), Moderate (6-25 bmp) Accelerations: positive: Present, 15x15 Decelerations: positive: None Strip Review: positive: Category I - Vaginal Exam Dilation (in cm): 10 Effacement (%): 100% Station: 0 Cervical Position: Anterior - Labor Progress Note Labor Progress Note/Additional Text: Though the contractions are difficult to track, the patient is progressing and now entering the second stage of labor. The membranes were artificially ruptured and there is clear fluid. Anticipate vaginal delivery soon. and therefore we will not place IUPC at this time. Patient enjoys excellent pain control with epidural.
--- NOTE | 2018-04-03 04:25 | PROVIDER PROGRESS NOTE ---
Labor Progress Note - Uterine Monitoring Uterine Monitoring Mode: positive: External toco Contraction Frequency (min/apart): q4-5min Contraction Intensity: positive: Moderate Uterine Resting Tone: positive: Soft - Monitoring Monitor Mode: positive: External ultrasound Heart Rate Baseline: 120 Heart Rate Variability: positive: Minimal (0-5 bpm) Accelerations: positive: Present, 15x15 Decelerations: positive: None Strip Review: positive: Category II - Vaginal Exam Dilation (in cm): 10 Effacement (%): 100% Station: 3 Cervical Position: Anterior - Labor Progress Note Labor Progress Note/Additional Text: Patient was allowed to labor down. We will begin pushing shortly. Patient rep orts nausea with clear emesis. Zofran given
[2018-04-03] MEDS ORDERED: MINERAL OIL LIGHT 10 ML MC ONE (04:37)
[2018-04-03] MEDS ORDERED: LIDOCAINE 1% 50 ML MDV ONE (04:40)
--- NOTE | 2018-04-03 04:54 | DELIVERY NOTE ---
Delivery Note - Labor Labor: positive: Spontaneous - Delivery Method Delivery Method: positive: Spontaneous vaginal delivery - Presentation Presentation: positive: Vertex, OA - occiput anterior - Nuchal Cord Nuchal Cord: positive: None (Bandolier cord) - Anesthetic Anesthetic Type: Anesthetic: positive: Lidocaine - 1% plain Volume: positive: 4cc - Amniotic Fluid Description Amniotic Fluid Description: positive: Clear - Episiotomy Type Episiotomy Type: positive: None - Laceration Laceration: positive: Other (Left labia minor, shallow) - Suture Suture Type: positive: Vicryl Suture Size: positive: 2-0 - Delivery Outcome Delivery Outcome: positive: Livebirth - : positive: Placed in direct skin contact with mother sex: positive: Male : weight = 7lbs 2oz; Apgars 8/9 - Cord Cord: positive: 3 vessels (Cord fragile and sheared during the third stage of labor) - Placenta Placenta: positive: Intact, Manual removal (Placenta grade 3; easy removal) - Estimated Blood Loss Estimated Blood Loss (in cc): 200 - Post Delivery Events Post Delivery Events: positive: No post delivery events - Delivery Comments (Free Text/Narrative) Delivery Comments (Free Text/Narrative): Patient achieved completion at roughly 1:30 AM and was very comfortable with epidural. She was allowed to labor down. With the head at OA and +3 station she began to push with good effort and smoothly brought the head to the perineum. Push & stretch method was used with lubricant. Head atraumatically crowned and shoulders were delivered without difficulty. was brought to maternal chest and placed skin to skin. Mother baby and family all bonded well. When the cord stopped pulsing it was doubly clamped then transected. Cord blood sample was sent. Cervix and vagina intact to inspection. There was a small circumferential shallow tear on the anterior of the left labia minor. This was uneventfully repaired with interrupted stitches of 2-0 Vicryl. All sponge needle and instrument counts were confirmed as correct. Maternal blood type Rh+. A total of 2 doses of penicillin were given during the course of labor.
[2018-04-03] MEDS ORDERED: HYDROCORTISONE/PRAMOXINE 10 GM PR PRN (05:02)
[2018-04-03] MEDS ORDERED: WITCH HAZEL/GLYCERIN 1 EACH MED..PAD TOP PRN (05:02)
[2018-04-03] MEDS ORDERED: OXYTOCIN/SODIUM CHLORIDE 250 ML IV ONE (05:02)
[2018-04-03] MEDS ORDERED: HYDROcod/ACETAM 5/325 MG TABLET PO PRN (05:02)
[2018-04-03] MEDS ORDERED: LACTATED RINGERS 1,000 ML IV SCH (06:00)
[2018-04-03] MEDS: ACETAMINOPHEN 325 MG TABLET PO PRN ×3 (08:01→20:24)
[2018-04-03] MEDS: IBUPROFEN 600 MG TABLET PO SCH ×3 (08:01→20:23)
[2018-04-03] MEDS ORDERED: MEASLES,MUMPS & RUBELLA VACC 0.5 ML VIAL SUBQ ONE (15:30)
[2018-04-03 18:42] LABS: BASOPHILS % (AUTO) 0.4 %; EOSINOPHILS # (AUTO) 0.1 10^3/uL (0.0-0.7); EOSINOPHILS % (AUTO) 0.9 %; HGB - HEMOGLOBIN 10.5 g/dL (12.0-16.0); LYMPHOCYTES # (AUTO) 3.6 10^3/uL (1.5-3.5); LYMPHOCYTES % (AUTO) 28.7 %; MEAN CORPUSCULAR HEMOGLOBIN 31.2 pg (27.0-31.0); MEAN CORPUSCULAR HGB CONC 33.8 g/dL (32.0-36.0); MEAN CORPUSCULAR VOLUME 92.3 fL (81.0-99.0); MONOCYTES % (AUTO) 8.3 %; NEUTROPHILS # (AUTO) 7.8 10^3/uL (1.5-6.6); NEUTROPHILS % (AUTO) 61.7 %; PLT - PLATELET COUNT 238 10^3/uL (130-450); RED BLOOD COUNT 3.39 10^6/uL (4.20-5.40); RED CELL DISTRIBUTION WIDTH 13.5 % (12.0-15.0); WHITE BLOOD COUNT 12.6 x10^3/uL (4.8-10.8)
[2018-04-04] MEDS: ACETAMINOPHEN 325 MG TABLET PO PRN ×2 (00:03→04:52)
[2018-04-04] MEDS: IBUPROFEN 600 MG TABLET PO SCH (04:53)
--- NOTE | 2018-04-04 11:43 | PROVIDER PROGRESS NOTE ---
Subjective - Prog Note Date Prog Note Date: 04/04/18 Prog Note Time: 11:40 - Subjective Pt reports feeling: Improved Subjective: Juana sitting in bed with SO (not the FOB) on video chat with parents. Juana is doing well and without complaints. Feeling sore and "empty" in her abdomen. States she is ambulating well and urinating without difficulty. Denies fevers, chills, nausea or vomiting. Pain controlled with motrin and tylenol. Mild lochia. Desires to go home. Breast feeding baby. Objective - Vital Signs/Intake & Output Vital Signs: Vital Signs x48h Temp Pulse Resp BP Pulse Ox 04/04/18 08:40 97.7 F 90 19 126/81 H 99 04/04/18 04:51 97.5 F L 62 16 120/71 100 Intake & Output: Intake & Output 04/01/18 04/02/18 04/03/18 04/04/18 23:59 23:59 23:59 23:59 Intake Total 1100 800 Output Total 1350 Balance 1100 -1350 800 - Objective General Appearance: positive: No acute distress Eyes Bilateral: positive: Normal inspection Abdomen: positive: Non-tender (Firm fundus) Neurologic/Psychiatric: positive: Oriented x3 - Lab Results Fish Bones: 04/03/18 18:15 Other Labs: Lab Results x24hrs 04/03/18 Range/Units 18:15 WBC 12.6 H (4.8-10.8) x10^3/uL RBC 3.39 L (4.20-5.40) 10^6/uL Hgb 10.5 L (12.0-16.0) g/dL Hct 31.2 L (37.0-47.0) % MCV 92.3 (81.0-99.0) fL MCH 31.2 H (27.0-31.0) pg MCHC 33.8 (32.0-36.0) g/dL RDW 13.5 (12.0-15.0) % Plt Count 238 (130-450) 10^3/uL MPV 10.0 (7.9-10.8) fL Neut # (Auto) 7.8 H (1.5-6.6) 10^3/uL Lymph # (Auto) 3.6 H (1.5-3.5) 10^3/uL [place] # (Auto) 1.0 (0.0-1.0) 10^3/uL Eos # (Auto) 0.1 (0.0-0.7) 10^3/uL Baso # (Auto) 0.0 (0.0-0.1) 10^3/uL Absolute Nucleated RBC 0.01 x10^3/uL Nucleated RBC % 0.1 /100WBC Assessment/Plan - Problem List (1) Normal delivery at term Impression: 27 yo S/p 04/02/2018, PPD #2 Normal recovery Discharge to home [place] to continue PRN OTC motrin and tylenol Rx for vicodin for breakthrough pain Follow up with WC in 3 weeks for a routine visit Will need to address DUNCAN 3 Call for worsening fevers, chills, abdominal pain or vaginal bleeding D/C summary dictated [id number] Discharge Plan Disposition: Home, Self Care Condition: Good Diet: Regular Activity Restrictions: Activity as Tolerated Shower Restrictions: No Driving Restrictions: Yes (No driving) Weight Bearing: Full Weight (Take over the counter ibuprofen 800 mg every 6 hours and Tylenol 1000 mg every 8 hours as needed for pain. Rx for vicodin for breakthrough pain. Call for worsening fevers, chills, abdominal pain or vaginal bleeding.) No Smoking: If you smoke, Please STOP! Call for help.
[2018-04-04 12:01] VITALS: BP 112/72
[2018-04-04] MEDS ORDERED: MEASLES,MUMPS & RUBELLA VACC 0.5 ML VIAL SUBQ ONE (13:00)
--- NOTE | 2018-04-04 13:03 | Labor Flowsheet ---
Labor Flowsheet Datetime Report Generated by CPN: 04/04/2018 13:03 Datetime: 04/04/2018 11:53 VITAL SIGNS NBP Sys/Kyara/Mean (mmHg): 112 : 72 : 81 Pulse: 63 LaborFlag: Labor Datetime: 04/03/2018 04:36 Pushing Position: Pushing Lithotomy Pushing Progress: Descent with Pushing; with Pushing; Pushing Effectively with Contraction s Stage 2 Comments: , viable female Datetime: 04/03/2018 04:35 SpO2 (%): 100 Datetime: 04/03/2018 04:30 UTERINE ACTIVITY Monitor Mode: External Quality: Moderate Duration (sec): 60-70 Pattern: Normal: <= 5 Contractions in 10 Minutes Resting Tone (Palpate): Relaxed ASSESSMENT A Monitor Mode: External US FHR Baseline Rate : 120 FHR Baseline Changes: No Baseline Change Variability: Moderate 6-25 bpm Accelerations: occas accels to 150s Decelerations: Variable Actions for Decelerations: Pushing w/R hip wedge Category: Category II Datetime: 04/03/2018 04:26 Provider Reviewed Strip: Yes COMMUNICATION Communication: Provider at Bedside Notification Reason: Status Update Communication Comments: Dr Caruso here for delivery Datetime: 04/03/2018 04:15 Frequency (min): 3-5 TEACHING Instructional Method: Verbal; Patient Instructed; Family/Support Person Instructed; Verbalized Unde rstanding Plan of Care: Vaginal Delivery Labor/Induction: Pushing Methods Datetime: 04/03/2018 04:14 Antiemetics/Antacids: Zofran (mg) @ 4mg Datetime: 04/03/2018 04:13 Provider Notified (Name): Caruso Datetime: 04/03/2018 04:06 Patient Care Comments: emesis Datetime: 04/03/2018 04:04 STAGE 2 Pushing: Coached on Pushing Datetime: 04/03/2018 04:00 PAIN Pain Scale: 0 Pain Presence: None/Denies Pain Type: N/A Pain Goal: 5 Pain Coping: Talking Through Contractions Anesthesia Level Check: T8- Ribs Datetime: 04/03/2018 03:59 I/O Interventions: Straight Cath (ml) @ 700 Datetime: 04/03/2018 03:50 Respirations: 20 Temperature (C): 36.6 Datetime: 04/03/2018 03:38 Monitor Interventions for UA: [place] Adjusted Datetime: 04/03/2018 03:30 Comments: ? early/late Datetime: 04/03/2018 03:15 VAGINAL EXAM Dilatation (cm): 10.0 Effacement (%): 100 Station: 3 Exam by: Tilton RNFrancine RNC Vaginal Exam Comments: pt reports inc pressure Datetime: 04/03/2018 03:02 Patient Position/Activity: Left Lateral Datetime: 04/03/2018 02:02 Pain Relief Measures: Epidural Given Comfort Measures: Breathing/Relaxation; Family Support Datetime: 04/03/2018 02:00 Temperature Route: Oral Datetime: 04/03/2018 01:42 Membrane Status: Ruptured Membranes Rupture Method: Artificial Amniotic Fluid Color: Clear Amniotic Fluid Amount: Moderate Amniotic Fluid Odor: Normal Datetime: 04/03/2018 01:41 Stage of : Labor Datetime: 04/03/2018 01:29 ANESTHESIA Anesthesia Plans: Epidural Anesthesia Interview: E Datetime: 04/03/2018 00:45 Strip Reviewed by: H. Tilton RN, L. Spear RN Datetime: 04/03/2018 00:42 Vaginal Bleeding: Normal Show Cervix, Consistency: Soft Cervix, Position: Anterior Datetime: 04/03/2018 00:30 MEDICATIONS Antibiotics: Penicillin IV (Units) @ 2.5M Oxygen Method: Room Air Datetime: 04/02/2018 23:14 PATIENT CARE IV/Blood Work: New IV Bag Hung; IV Bag Number @ 2 Datetime: 04/02/2018 22:25 Pain Location: Abdomen; Right Groin; Left Groin Datetime: 04/02/2018 22:11 Epidural Procedure: Loading Dose Datetime: 04/02/2018 22:00 Pain Management: Epidural Datetime: 04/02/2018 21:54 PROCEDURE TIME OUT Procedure Type: [id number] Procedure Verify: Correct Patient Identity; Correct Side and Site are Marked; Accurate Procedure Co nsent Form; Agreement on Procedure to be Done; Correct Patient Position; Relevant Images and Results are Properly Labeled and Displayed; Addressed Need to Administer Antibiotics or Fluids for Irrigation ; Safety Precautions Based on Patient History or Medication Use Epidural Positioning: Sitting Datetime: 04/02/2018 21:52 Medication Comments: Nitrous off; prep for epidural Datetime: 04/02/2018 20:30 Unit Routine: [place] to Room; Call Styles; Bed; Visiting Policy; Waiting Areas; Phone/Cell Phone Use; Unit Personnel; Handwashing; Monitoring; IV Pumps; Diet/Nutrition Services; Bathroom Privilege s; Medications
--- NOTE | 2018-04-05 03:01 | DISCHARGE SUMMARY ---
Physician: Yakelin Weaver DO FACOG DATE OF ADMISSION: 04/02/2018 DATE OF DISCHARGE: 04/04/2018 DIAGNOSES ON ADMISSION 1. A 27-year-old, G2, P0-0-1-0 with a 39-4/7 week intrauterine . 2. Active labor. 3. Group B streptococcus positive. 4. Cervical intraepithelial neoplasia, grade 3. DIAGNOSES ON DISCHARGE 1. A 27-year-old G2, P1-0-1-1, status post spontaneous vaginal delivery on 04/02/2018. 2. Normal recovery. 3. Cervical intraepithelial neoplasia, grade 3. HISTORY OF PRESENT ILLNESS: Patient is a patient of [facility] whose has been remarkable for DUNCAN 3, and had a colposcopy done by Gynecologic Oncology. In addition, she had GBS. Patient presented with complaints of contractions and found to be in active labor at 4 cm dilation, 80% effacement and 0 station. Patient was admitted to the hospital, given epidural for pain control. She spontaneously delivered a viable male infant with Apgars of 8 and 9 at one and five minutes respectively. There was a bandolier cord noted at the time of delivery. He weighed 7 pounds 2 ounces. Patient sustained a superficial left labial laceration that was repaired with 2-0 Vicryl. Patient's course has been unremarkable. She is ambulating and tolerating her diet. Patient was urinating without difficulty, and her pain is controlled with ibuprofen and Tylenol. Patient has not taken any Vicodin at this point in time. Patient is successfully . Patient will be discharged to home today with instructions to continue [id number] Motrin and Tylenol. Prescription for Vicodin will be available to her should she need it for breakthrough pain. Patient is to see us at [facility] in 3 weeks and then 8 weeks. We will discuss control at that time. In addition, we will need to address patient's DUNCAN 3. She most likely will need to have either cold knife cone or a LEEP. Patient is to call if she is having worsening fever, chills, abdominal pain or vaginal bleeding. TD: 04/04/2018 11:57 [facility]
--- NOTE | 2018-04-08 20:17 | DISCHARGE SUMMARY ---
Physician: Yakelin Weaver DO DATE OF ADMISSION: 04/02/2018 DATE OF DISCHARGE: 04/04/2018 ADDENDUM: I had erroneously dictated that Juana delivered a male infant, when in fact, she delivered a female . TD: 04/08/2018 16:16 MTDD
== END 2018-04-04 13:00 | disposition home or self-care (01) | DRG 807 ==
LOC: WFO 18:19 → FBP 18:21 → WFO 19:19 → FBP 19:20
PROVIDERS: ADMIT Obstetrics & Gynecology; ATTEND Obstetrics & Gynecology
PROC: 10E0XZZ Delivery of Products of Conception, External Approach (ICD-10-PCS; principal; 2018-04-03)
PROC: 0HQ9XZZ Repair Perineum Skin, External Approach (ICD-10-PCS; 2018-04-03)
PROC: 10907ZC Drainage of Amniotic Fluid, Therapeutic from Products of Conception, Via Natural or Artificial Opening (ICD-10-PCS; 2018-04-03)
DX: O99.824 Streptococcus B carrier state complicating childbirth (principal); Z37.0 Single live birth; O99.89 Other specified diseases and conditions complicating pregnancy, childbirth and the puerperium; D06.9 Carcinoma in situ of cervix, unspecified; Z3A.39 39 weeks gestation of pregnancy; O69.89X0 Labor and delivery complicated by other cord complications, not applicable or unspecified; O70.0 First degree perineal laceration during delivery; O99.314 Alcohol use complicating childbirth; F10.21 Alcohol dependence, in remission; O99.334 Smoking (tobacco) complicating childbirth; F17.200 Nicotine dependence, unspecified, uncomplicated
CPT/HCPCS: 36415; 85025; 99213

== ENCOUNTER 2020-09-22 08:00 | Outpatient (CLI) | payer MEDICAID ==
[2020-09-22 17:04] LABS: MUDS CUTOFF CONCENTRATIONS CUTOFF CONC BELOW:
[2020-09-22 17:13] LABS: BILIRUBIN,URINE NEGATIVE (NEGATIVE); CLARITY,URINE CLEAR (CLEAR); GLUCOSE, URINE (UA) NEGATIVE (NEGATIVE); KETONES,URINE (UA) NEGATIVE (NEGATIVE); LEUKOCYTE ESTERASE, URINE NEGATIVE (NEGATIVE); NITRITE,URINE NEGATIVE (NEGATIVE); OCCULT BLOOD,URINE NEGATIVE (NEGATIVE); PROTEIN,URINE NEGATIVE (NEGATIVE); UROBILINOGEN,URINE 0.2 (NORMAL) E.U./dL (NORMAL)
[2020-09-22 17:15] LABS: BACTERIA,URINE Rare /HPF (None Seen); RBC,URINE 0-5 /HPF (0-5); SQUAMOUS EPITHELIAL CELL,UR RARE Squamous (<= Few); WBC,URINE 0-3 /HPF (0-5)
[2020-09-22 17:27] LABS: AMPHETAMINE SCREEN,URINE NEGATIVE (NEGATIVE); BARBITURATE SCREEN,UR NEGATIVE (NEGATIVE); BENZODIAZEPINES SCREEN, URINE NEGATIVE (NEGATIVE); COCAINE SCREEN URINE NEGATIVE (NEGATIVE); METHADONE SCREEN, URINE NEGATIVE (NEGATIVE); METHAMPHETAMINES SCREEN, URINE NEGATIVE (NEGATIVE); OPIATE SCREEN, URINE NEGATIVE (NEGATIVE); OXYCODONE SCREEN, URINE NEGATIVE (NEGATIVE); PROPOXYPHENE SCREEN, URINE NEGATIVE (NEGATIVE); THC CANNABINOID SCREEN, URINE NEGATIVE (NEGATIVE); TRICYCLIC ANTIDEPRESSANT,URINE NEGATIVE (NEGATIVE)
[2020-09-22 22:07] LABS: CHLAMYDIA TRACHOMATIS DNA NEGATIVE (NEGATIVE); NEISSERIA GONORRHOEAE DNA NEGATIVE (NEGATIVE); TRICHOMONAS VAGINALIS DNA NEGATIVE (NEGATIVE)
== END 2020-09-22 23:59 | disposition home or self-care (01) ==
LOC: LAB.R 08:00
PROVIDERS: ATTEND Nurse Practitioner Obstetrics & Gynecology
DX: Z32.01 Encounter for pregnancy test, result positive (principal); Z20.2 Contact with and (suspected) exposure to infections with a predominantly sexual mode of transmission
CPT/HCPCS: 80306; 81001; 87086; 87491; 87591; 87661

== ENCOUNTER 2020-10-03 10:30 | Outpatient (CLI) | payer MEDICAID ==
--- NOTE | 2020-10-03 17:45 | Ultrasound Report ---
PROCEDURE: OB 14+ Weeks INDICATIONS: TEST POSITIVE OUTSIDE/PRIOR DATING DATA: Last menstrual period (LMP): 06/11/2020. LMP-based estimated date of delivery (YADI): 03/18/2021. First dating scan (date and location): 10/03/2020. Estimated date of delivery (YADI) from first dating scan: 03/18/2021. TECHNIQUE: Real-time scanning was performed of the fetus, with image documentation and biometric measurements. Endovaginal scanning: Not performed COMPARISON: None. FINDINGS: General: A single living intrauterine gestation is present. Presentation: Variable Placenta: Placental position is anterior, without previa. Amniotic fluid index: 8.7 cm, 8th percentile for gestational age. heart rate: 143 beats per minute. Maternal cervical canal: 4.7 cm long; normal length is 2.5 cm or more. biometrics: Biparietal diameter: 3.47 cm, correlating with 16 weeks and 5 days Head circumference: 12.52 cm, correlating with 16 weeks and 2 days Abdominal circumference: 10.3 cm, correlating with 16 weeks and 2 days Femur length: 1.96 cm, correlating with 15 weeks and 6 days Estimated gestational age from initial scan: not applicable. Composite gestational age from present scan: 16 weeks and 2 days Estimated weight and percentile: 145 [address] the fetus within the 30th percentile for ge stational age. Measurement variability for biometric dating: +/- 10 days from 12-20 weeks gestation, +/- 2 weeks fro m 20-30 weeks gestation, +/- 3 weeks for 30 weeks gestation or later. Anatomic survey: Neuro: Not well seen secondary to early gestational age. Nuchal skin fold: Not well seen secondary to early gestational age. Face: Not well seen secondary to early gestational age. Spine: Not well seen secondary to early gestational age. Heart: Not well seen secondary to early gestational age. Diaphragm: Not well seen secondary to early gestational age. Stomach: Not well seen secondary to early gestational age. Kidneys: Not well seen secondary to early gestational age. Cord: Not well seen secondary to early gestational age. Bladder: Not well seen secondary to early gestational age. Extremities: Not well seen secondary to early gestational age. IMPRESSION: 1. Single living intrauterine gestation with estimated sonographic gestational age of approximately 1 6 weeks and 2 days. This correlates with estimated date of delivery of approximately 03/18/2021. 2. anatomy not well visualized secondary to early gestational age. Follow-up imaging recommende d. 3. The four-quadrant MITA measured 8.7 cm which correlated with the 8th percentile for gestational age . Recommend close clinical surveillance with follow-up imaging as needed. Reviewed by: Conrad Butcher MD on 10/03/2020 5:44 PM PDT Approved by: Conrad Butcher MD on 10/03/2020 5:44 PM PDT Station ID: [id number]
== END 2020-10-03 10:31 | disposition home or self-care (01) ==
LOC: DI 10:30
PROVIDERS: ATTEND Advanced Practice Midwife
DX: Z32.01 Encounter for pregnancy test, result positive (principal)
CPT/HCPCS: 36415; 85025; 86592; 86762; 86787; 86803; 86850; 86900; 86901; 87340; 87389

== ENCOUNTER 2020-10-03 11:39 | Outpatient (CLI) | payer MEDICAID ==
[2020-10-03 12:05] LABS: BASOPHILS % (AUTO) 0.5 %; EOSINOPHILS # (AUTO) 0.1 10^3/uL (0.0-0.7); EOSINOPHILS % (AUTO) 0.8 %; HCT - HEMATOCRIT 36.8 % (37.0-47.0); HGB - HEMOGLOBIN 12.3 g/dL (12.0-16.0); LYMPHOCYTES # (AUTO) 2.2 10^3/uL (1.5-3.5); LYMPHOCYTES % (AUTO) 25.5 %; MEAN CORPUSCULAR HEMOGLOBIN 31.1 pg (27.0-31.0); MEAN CORPUSCULAR HGB CONC 33.4 g/dL (32.0-36.0); MEAN CORPUSCULAR VOLUME 93.2 fL (81.0-99.0); MEAN PLATELET VOLUME 10.6 fL (7.9-10.8); MONOCYTES # (AUTO) 0.4 10^3/uL (0.0-1.0); MONOCYTES % (AUTO) 4.4 %; NEUTROPHILS % (AUTO) 68.5 %; PLT - PLATELET COUNT 236 10^3/uL (130-450); RED BLOOD COUNT 3.95 10^6/uL (4.20-5.40); RED CELL DISTRIBUTION WIDTH 12.6 % (12.0-15.0); WHITE BLOOD COUNT 8.8 x10^3/uL (4.8-10.8)
[2020-10-04 13:55] LABS: HEPATITIS C ANTIBODY NON-REACTIVE (NON-REACTIVE)
[2020-10-04 14:12] LABS: HEPATITIS B SURFACE ANTIGEN NON-REACTIVE (NON-REACTIVE)
[2020-10-04 15:01] LABS: HIV AG/AB 4TH GEN NON-REACTIVE (NON-REACTIVE)
== END 2020-10-03 11:40 | disposition home or self-care (01) ==
LOC: LAB 11:39
PROVIDERS: ATTEND Nurse Practitioner Obstetrics & Gynecology
DX: Z32.01 Encounter for pregnancy test, result positive (principal)
CPT/HCPCS: 36415; 85025; 86592; 86762; 86787; 86803; 86850; 86900; 86901; 87340; 87389

== ENCOUNTER 2020-11-03 13:52 | Outpatient (CLI) | payer MEDICAID ==
[2020-11-06 10:21] LABS: AFP MOM 1.49; AGE RISK DOWN SYNDROME 1 IN 688; CALC'D GESTATIONAL AGE 20.7 weeks; CIGARETTE SMOKER? NOT GIVEN; DONOR AGE: EGG RETRIEVAL NOT GIVEN; DONOR EGG NO; EDD DETERMINED BY ULTRASOUND; ESTRIOL MOM 0.94; HCG MOM 1.33; HX OF NEURAL TUBE DEFECTS NO; INHIBIN A MOM 2.54; INSULIN DEPEND DIABETIC NO; MATERNAL WEIGHT 171 lbs; MSS DOWN SYNDROME RISK 1 IN 904; MSS3 TRISOMY 18 RISK <1 IN 5000; NUMBER OF FETUSES 1; PREV PREGNANCY DOWN SYND NO; RISK FOR ONTD 1 IN 1132
== END 2020-11-03 13:53 | disposition home or self-care (01) ==
LOC: LAB 13:52
PROVIDERS: ATTEND Obstetrics & Gynecology
DX: O09.93 Supervision of high risk pregnancy, unspecified, third trimester (principal); Z36.89 Encounter for other specified antenatal screening
CPT/HCPCS: 81511; 81599

== ENCOUNTER 2020-11-03 13:56 | Outpatient (CLI) | payer MEDICAID ==
--- NOTE | 2020-11-03 17:32 | Ultrasound Report ---
PROCEDURE: OB Detailed Eval INDICATIONS: ANATOMY SCAN OUTSIDE/PRIOR DATING DATA: Last menstrual period (LMP): 06/11/2020. LMP-based estimated date of delivery (YADI): 03/18/2021. First dating scan (date and location): 10/03/2020. Estimated date of delivery (YADI) from first dating scan: 03/18/2021. TECHNIQUE: Real-time scanning was performed of the fetus, with image documentation and biometric measurements. Endovaginal scanning: Not needed COMPARISON: First OB ultrasound for this FINDINGS: General: A single living intrauterine gestation is present. Presentation: Vertex Placenta: Placental position is anterior, without previa. Amniotic fluid index: 12.9 cm, 32 percentile for gestational age. heart rate: 155 beats per minute. Maternal cervical canal: 5.2 cm long; normal length is 2.5 cm or more. biometrics: Biparietal diameter: 4.6 cm, 19 weeks 6 days Head circumference: 18.0 cm, 20 weeks 3 days Abdominal circumference: 15.1 cm, 20 weeks 3 days Femur length: 3.4 cm, 20 weeks 4 days Estimated gestational age from initial scan: 20 weeks 5 days. Composite gestational age from present scan: 20 weeks 2 days Estimated weight and percentile: 355 g, 31st percentile Measurement variability in biometric dating: +/- 10 days from 12-20 weeks gestation, +/- 2 weeks from 20-30 weeks gestation, +/- 3 weeks at 30 weeks gestation or later. Anatomic survey: Neuro: Ventricles are normal at less than 10 mm. Cisterna magna is normal at 3-11 mm. Cerebellum i s normal in size and morphology. Nuchal skin fold: Normal at less than 6 mm between 14 and 20 weeks gestational age. Face: Nose and lips, facial profile are normal. Spine: No evidence for spina bifida. Heart: 4-chambered heart is present, with normal ventricular outflow tracts. Diaphragm: Diaphragm is intact. Stomach: Left-sided stomach is present. Kidneys: No hydronephrosis. Normal is less than 5 mm in 2nd trimester, less than 7 mm in 3rd trimester. Cord: 3 vessel cord has orthotopic insertion. Bladder: Normal in size. Extremities: All 4 extremities are visualized. IMPRESSION: Appropriate interval growth, no anomaly seen. Normal amniotic fluid volume. Reviewed by: Roberth You MD on 11/03/2020 5:31 PM PDT Approved by: Roberth You MD on 11/03/2020 5:31 PM PDT Station ID: [id number]
== END 2020-11-03 13:57 | disposition home or self-care (01) ==
LOC: DI 13:56
PROVIDERS: ATTEND Obstetrics & Gynecology
DX: O09.93 Supervision of high risk pregnancy, unspecified, third trimester (principal); Z36.89 Encounter for other specified antenatal screening; Z3A.00 Weeks of gestation of pregnancy not specified
CPT/HCPCS: 81511; 81599

== ENCOUNTER 2021-01-03 10:44 | Outpatient (CLI) | payer MEDICAID ==
[2021-01-03 12:05] LABS: HCT - HEMATOCRIT 34.2 % (37.0-47.0); HGB - HEMOGLOBIN 11.3 g/dL (12.0-16.0); MEAN CORPUSCULAR HEMOGLOBIN 31.9 pg (27.0-31.0); MEAN CORPUSCULAR VOLUME 96.6 fL (81.0-99.0); MEAN PLATELET VOLUME 10.9 fL (7.9-10.8); RED BLOOD COUNT 3.54 10^6/uL (4.20-5.40); RED CELL DISTRIBUTION WIDTH 13.1 % (12.0-15.0); WHITE BLOOD COUNT 11.4 x10^3/uL (4.8-10.8)
== END 2021-01-03 10:45 | disposition home or self-care (01) ==
LOC: LAB 10:44
PROVIDERS: ATTEND Obstetrics & Gynecology
DX: O09.92 Supervision of high risk pregnancy, unspecified, second trimester (principal)
CPT/HCPCS: 36415; 82950; 85027; 86850

== ENCOUNTER 2021-02-23 08:00 | Outpatient (CLI) | payer MEDICAID | END 2021-02-23 23:59 | disposition home or self-care (01) | LOC: LAB.WC 08:00 | PROVIDERS: ATTEND Obstetrics & Gynecology | DX: Z36.85 Encounter for antenatal screening for Streptococcus B (principal) | CPT/HCPCS: 87797 ==

== ENCOUNTER 2021-03-19 04:10 | Inpatient (IN) | payer MEDICAID ==
[2021-03-19 05:04] LABS: RUPTURE OF MEMBRANES PLUS POSITIVE (NEGATIVE)
[2021-03-19] MEDS ORDERED: OXYTOCIN/SODIUM CHLORIDE 500 ML IV PRN ×2 (05:04→19:31)
[2021-03-19] MEDS ORDERED: TRANEXAMIC ACID IN NACL 1,000 MG/100 ML BAG IV PRN (05:04)
[2021-03-19] MEDS ORDERED: LIDOCAINE-MPF 1% 30 ML VIAL ID PRN (05:04)
[2021-03-19] MEDS ORDERED: METHYLERGONOVINE 0.2 MG/ML VIAL IM PRN (05:04)
[2021-03-19] MEDS ORDERED: SODIUM CHLORIDE FLUSH 0.9% 10 ML SYRINGE IVP PRN (05:04)
[2021-03-19] MEDS ORDERED: CARBOPROST TROMETHAMINE 250 MCG/ML AMP IM PRN (05:04)
[2021-03-19] MEDS ORDERED: OXYTOCIN 10 UNIT/ML VIAL IM PRN (05:04)
[2021-03-19] MEDS ORDERED: miSOPROStoL 200 MCG TABLET BC PRN (05:04)
[2021-03-19] MEDS ORDERED: AMPICILLIN 2 GM in SODIUM CHLORIDE 0.9% MINIBAG 100 ML IV ONE (05:04)
[2021-03-19] MEDS: LACTATED RINGERS 1,000 ML IV SCH ×2 (05:40→13:09)
[2021-03-19] MEDS ORDERED: LABETALOL 20 MG/4 ML SYRINGE IVP PRN ×3 (05:51)
[2021-03-19] MEDS ORDERED: NIFEdipine 10 MG CAPSULE PO PRN (05:51)
[2021-03-19] MEDS ORDERED: fentaNYL 100 MCG/2 ML VIAL IVP PRN (05:51)
[2021-03-19] MEDS ORDERED: hydrALAZINE INJ 20 MG/ML VIAL IVP PRN ×2 (05:51)
[2021-03-19] MEDS ORDERED: ONDANSETRON 4 MG/2 ML VIAL IVP PRN ×2 (05:51→08:22)
[2021-03-19] MEDS ORDERED: METOCLOPRAMIDE 10 MG/2 ML VIAL IVP PRN ×2 (05:51→08:22)
[2021-03-19 05:58] LABS: BASOPHILS # (AUTO) 0.1 10^3/uL (0.0-0.1); BASOPHILS % (AUTO) 0.4 %; EOSINOPHILS # (AUTO) 0.1 10^3/uL (0.0-0.7); EOSINOPHILS % (AUTO) 0.7 %; HCT - HEMATOCRIT 35.5 % (37.0-47.0); HGB - HEMOGLOBIN 11.9 g/dL (12.0-16.0); LYMPHOCYTES # (AUTO) 3.4 10^3/uL (1.5-3.5); LYMPHOCYTES % (AUTO) 28.1 %; MEAN CORPUSCULAR HEMOGLOBIN 31.7 pg (27.0-31.0); MEAN CORPUSCULAR HGB CONC 33.5 g/dL (32.0-36.0); MEAN CORPUSCULAR VOLUME 94.7 fL (81.0-99.0); MONOCYTES # (AUTO) 0.8 10^3/uL (0.0-1.0); MONOCYTES % (AUTO) 6.5 %; NEUTROPHILS # (AUTO) 7.7 10^3/uL (1.5-6.6); NEUTROPHILS % (AUTO) 63.3 %; PLT - PLATELET COUNT 207 10^3/uL (130-450); RED BLOOD COUNT 3.75 10^6/uL (4.20-5.40); RED CELL DISTRIBUTION WIDTH 13.6 % (12.0-15.0); WHITE BLOOD COUNT 12.2 x10^3/uL (4.8-10.8)
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
[2021-03-19] MEDS ORDERED: ROPIVACAINE 0.2% 200 MG/100 ML BAG EP ONE (07:43)
[2021-03-19] MEDS ORDERED: diphenhydrAMINE INJ 50 MG/ML VIAL IVP PRN (08:22)
[2021-03-19] MEDS ORDERED: NALOXONE 0.4 MG/ML VIAL IVP PRN (08:22)
[2021-03-19] MEDS ORDERED: NALBUPHINE 10 MG/ML AMP IVP PRN (08:22)
[2021-03-19] MEDS ORDERED: ROPIVACAINE 0.2% 200 MG/100 ML BAG EP PRN (08:22)
[2021-03-19] MEDS ORDERED: ePHEDrine 50 MG/ML VIAL IVP PRN (08:22)
[2021-03-19] MEDS ORDERED: CALCIUM CARBONATE CHEW 500 MG TABLET PO PRN ×3 (08:24→12:56)
--- NOTE | 2021-03-19 08:30 | ANESTHESIA ---
Pre-Anesthesia VS, & Labs - Diagnosis labor epidural - Procedure epidural Vital Signs: Temp Pulse Resp BP Pulse Ox 36.6 C 88 20 121/77 03/19/21 06:06 03/19/21 06:06 03/19/21 06:06 03/19/21 06:06 Height: 5 ft 7 in Weight (kg): 86.183 kg Body Mass Index: 29.7 BMI Classification: Overweight - NPO >8 hours - Is Patient ?: Yes - Lab Results Current Lab Results: Laboratory Tests 03/19/21 05:40: Blood Type A POSITIVE, Antibody Screen NEGATIVE 03/19/21 05:40: WBC 12.2 H, RBC 3.75 L, Hgb 11.9 L, Hct 35.5 L, MCV 94.7, MCH 31.7 H, MCHC 33.5, RDW 13.6, Plt Count 207, MPV 12.0 H, Neut # (Auto) 7.7 H, Lym ph # (Auto) 3.4, Eagle # (Auto) 0.8, Eos # (Auto) 0.1, Baso # (Auto) 0.1, Absolute Nucleated RBC 0.00, Nucleated RBC % 0.0 Fish Bones: 03/19/21 05:40 Home Medications and Allergies Active Medications Calcium Carbonate/Glycine (Calcium Carbonate Chew 500 Mg Tablet) 500 mg PO PRN PRN PRN Reason: Heartburn Stop: 03/21/21 08:23 Carboprost Tromethamine (Carboprost Tromethamine 250 Mcg/Ml Amp) 250 mcg IM Q15M PRN PRN Reason: Step 4: Hemorrhage protocol Stop: 03/24/21 05:05 Diphenhydramine HCl (Diphenhydramine Inj 50 Mg/Ml Vial) 12.5 - 25 mg IVP Q6HR PRN PRN Reason: ITCHING Ephedrine Sulfate (Ephedrine 50 Mg/Ml Vial) 5 mg IVP Q5M PRN PRN Reason: For SBP<100;give until SBP>100 Fentanyl (Fentanyl 100 Mcg/2 Ml Vial) 50 mcg IVP Q1H PRN PRN Reason: PAIN Hydralazine HCl (Hydralazine Inj 20 Mg/Ml Vial) 5 - 20 mg IVP Q20M PRN; Protocol PRN Reason: SBP >160 or DBP >110 Hydralazine HCl (Hydralazine Inj 20 Mg/Ml Vial) 10 mg IVP .ONCE PRN; Protocol PRN Reason: Step 9 of Labetalol protocol Stop: 03/24/21 05:52 Lactated Ringer's (Lr) 1,000 mls @ 150 mls/hr IV .Q6H40M JESSICA Last Admin: 03/19/21 05:40 Dose: 150 mls/hr Documented by: Oxytocin/Sodium Chloride (Pitocin/Sodium Chloride) 500 mls @ 999 mls/hr IV PRN PRN; Protocol PRN Reason: POST- HEMORR PREVENTION Stop: 03/24/21 05:05 Tranexamic Acid (Tranexamic 1,000 Mg/100ml-Nacl) 1,000 mg in 100 mls @ 600 mls/hr IV .ONCE PRN PRN Reason: EBL >1200mL and within 3hr Stop: 03/24/21 05:05 Ampicillin Sodium 1 gm/ Sodium (Chloride) 100 mls @ 200 mls/hr IV Q4H JESSICA Ropivacaine (Naropin 0.2%) 200 mg in 100 mls @ 0 mls/hr EP PRN PRN; Protocol PRN Reason: PAIN Labetalol HCl (Labetalol 20 Mg/4 Ml Syringe) 20 - 80 mg IVP Q10M PRN; Protocol PRN Reason: SBP >160 or DBP >110 Labetalol HCl (Labetalol 20 Mg/4 Ml Syringe) 20 mg IVP .ONCE PRN; Protocol PRN Reason: Step 9 of nifedipine protocol Stop: 03/24/21 05:52 Labetalol HCl (Labetalol 20 Mg/4 Ml Syringe) 40 mg IVP .ONCE PRN; Protocol PRN Reason: Step 9 of hydrALAZine protocol Stop: 03/24/21 05:52 Lidocaine HCl (Lidocaine-Mpf 1% 30 Ml Vial) 30 ml ID .ONCE PRN PRN Reason: PERINEAL REPAIR Stop: 03/24/21 05:05 Methylergonovine Maleate (Methylergonovine 0.2 Mg/Ml Vial) 0.2 mg IM .ONCE PRN PRN Reason: Step 2: Hemorrhage protocol Stop: 03/24/21 05:05 Metoclopramide HCl (Metoclopramide 10 Mg/2 Ml Vial) 10 mg IVP Q6H PRN PRN Reason: Nausea / Vomiting Metoclopramide HCl (Metoclopramide 10 Mg/2 Ml Vial) 10 mg IVP Q6HR PRN PRN Reason: Nausea / Vomiting Misoprostol (Misoprostol 200 Mcg Tablet) 800 mcg BC .ONCE PRN PRN Reason: Step 3: Hemorrhage protocol Stop: 03/24/21 05:05 Nalbuphine HCl (Nalbuphine 10 Mg/Ml Amp) 2.5 - 5 mg IVP Q4H PRN PRN Reason: ITCHING Naloxone HCl (Naloxone 0.4 Mg/Ml Vial) 0.1 mg IVP Q2M PRN PRN Reason: RR<8 Nifedipine (Nifedipine 10 Mg Capsule) 10 - 20 mg PO Q20M PRN; Protocol PRN Reason: SBP >160 or DBP >110 Ondansetron HCl (Ondansetron 4 Mg/2 Ml Vial) 4 mg IVP Q4H PRN PRN Reason: Nausea / Vomiting Oxytocin (Oxytocin 10 Unit/Ml Vial) 10 unit IM .ONCE PRN PRN Reason: Step one: If no IV access Stop: 03/24/21 05:05 Sodium Chloride (Sodium Chloride Flush 0.9% 10 Ml Syringe) 10 ml IVP PRN PRN PRN Reason: NEEDED PER PROVIDER ORDERS Sodium Chloride (Sodium Chloride Flush 0.9% 10 Ml Syringe) 10 ml IVP 0100,0900,1700 JESSICA Pnv No.95/Ferrous Fum/Folic AC [ Formula] 1 each PO 11/01/17 Allergies/Adverse Reactions: Allergies Allergy/AdvReac Type Severity Reaction Status Date / Time grapefruit AdvReac Edema Verified 11/01/17 14:53 Anes History & Medical History - Anesthetic History Anesthesia Complications: reports: No previous complications - Medical History Cardiovascular: reports: None Pulmonary: reports: None Gastrointestinal: reports: None Urinary: reports: None Smoking Status: Current every day smoker History of Cancer?: No Exam General: Alert, Oriented x3 Dental: WNL Mouth Opening: Greater than 4 Fingerbreadths Neck Mobility: Normal Mallampati classification: I Thyromental Distance: greater than 6 cm Respiratory: Lungs clear Cardiovascular: Regular rate Plan Anesthesia Type: Epidural Consent for Procedure(s) Verified and Reviewed: Yes Code Status: Attempt Resuscitation ASA classification: 2-Mild systemic disease Is this case an emergency?: No
[2021-03-19] MEDS ORDERED: SODIUM CHLORIDE FLUSH 0.9% 10 ML SYRINGE IVP SCH (09:00)
[2021-03-19] MEDS: AMPICILLIN 1 GM in SODIUM CHLORIDE 0.9% MINIBAG 100 ML IV SCH ×2 (09:56→13:53)
[2021-03-19] MEDS ORDERED: OXYTOCIN/SODIUM CHLORIDE 500 ML IV SCH (10:00)
--- NOTE | 2021-03-19 17:21 | DELIVERY NOTE ---
Delivery Note - Labor Labor: positive: Augmented by oxytocin - Delivery Method Delivery Method: positive: Spontaneous vaginal delivery - Cervical Ripening Method Cervical Ripening Method: positive: Oxytocin - Presentation Presentation: positive: Vertex - Nuchal Cord Nuchal Cord: positive: None - Anesthetic Anesthetic Type: - Amniotic Fluid Description Amniotic Fluid Description: positive: Clear - Episiotomy Type Episiotomy Type: positive: None - Laceration Laceration: positive: 2nd degree - Suture Suture Type: positive: Vicryl Suture Size: positive: 3-0 - Delivery Outcome Delivery Outcome: positive: Livebirth - : positive: Suctioned, Bulb syringe, Stimulated sex: positive: Male - Cord Cord: positive: 3 vessels - Placenta Placenta: positive: Intact - Estimated Blood Loss Estimated Blood Loss (in cc): 250 - Post Delivery Events Post Delivery Events: positive: No post delivery events - Delivery Comments (Free Text/Narrative) Delivery Comments (Free Text/Narrative): Patient was a 30-year-old -0-1-1 at 40 weeks 1 day gestation who presented today for spontaneous rupture of membranes shortly after midnight at approximately 12:05 AM. She had a small gush at that time that a large gush around 1 AM. She later came to labor and delivery for assessment of labor. She was ruptured at that time admitted for labor. As she was GBS positive, she received ampicillin for GBS sepsis prophylaxis. She was checked and found to be 1 cm approximately 8 to 9 hours after rupture, and was started on oxytocin for augmentation. Approximate 4 hours later she was checked again and found to be 7 cm and oxytocin augmentation was continued. She called out after approximately 4 hours and felt pressure. At that time she was checked and found to be complete and 0 station. We did 1 practice push and patient made good descent in the delivery table was set up. She received a total of 3 doses of ampicillin. Patient was placed in the dorsal lithotomy position. Upon maternal pushing the head was delivered atraumatically followed by the anterior shoulder, posterior shoulder, then the remainder of the infant's body. A male infant was delivered. Weights are pending this time. APGARS of 9 at 1 minute and 9 at 5 minutes. The infant's mouth and nose were bulb suctioned below the level of the perineum .The umbilical cord was clamped times two and cut. The was placed on her mothe r's abdomen. Cord blood was obtained. The placenta delivered intact with three vessel cord. Placenta was not sent to pathology. Oxytocin was allowed to run freely. Uterine massage was performed until uterus was deemed firm. Upon inspection the perineum, a second-degree midline laceration was noted and was repaired in a running fashion with 3-0 Vicryl. Upon re-inspection the patient was hemostatic. Uterus again massaged and found to be firm. Needle and sponge counts were correct. Patient was stable and allowed to recover in L&D room. Infant was stable and remained in room with mother.
[2021-03-19] MEDS ORDERED: LACTATED RINGERS 1,000 ML IV SCH (18:00)
[2021-03-19] MEDS: IBUPROFEN 600 MG TABLET PO SCH (19:01)
[2021-03-19] MEDS: ACETAMINOPHEN 500 MG TABLET PO SCH (19:01)
[2021-03-19] MEDS: DOCUSATE SODIUM 100 MG CAPSULE PO PRN (21:55)
[2021-03-20] MEDS: IBUPROFEN 600 MG TABLET PO SCH ×3 (00:37→12:55)
[2021-03-20] MEDS: ACETAMINOPHEN 500 MG TABLET PO SCH ×3 (03:00→12:55)
--- NOTE | 2021-03-20 09:40 | DISCHARGE SUMMARY ---
"Discharge Summary Admit Date: 03/19/21 Discharge Date: 03/20/21 Discharging Provider: Ricky Murillo MD Code Status: Attempt Resuscitation Condition at Discharge: Good Discharge Disposition: 01 Home, Self Care - DIAGNOSES Admission Diagnoses: Rupture of membranes at term Discharge Diagnoses with Status of Each Condition: 40 weeks gestation rupture of membranes at term Status post spontaneous vaginal delivery - HPI History of Present Illness: Patient is a 30-year-olg [id number] who presented at 40 weeks 1 day gestation with spontaneous rupture of membranes. She was GBS positive and was started on ampicillin for sepsis prophylaxis. She was one centimeter upon intial check and was started on oxytocin for hypotonic uterine contractions. On subsequent check, she was 7 cm and continued augmentation with oxytocin. The patient began feeling pressure and was checked and found to be complete and the physicians were called for delivery. She underwent an uncomplicated vaginal delivery. Her course was uneventful. She has no fever, chills, abnormal abdominal tenderness, heavy bleeding, urinary retention or dysuria. Patient is successfuly without issue. Plan for condoms for contraception, but will discuss further at her visit. FOB in town for a few more days. She was discharged on day 1. - CONSULTS | PROCEDURES Procedures: Spontaneous vaginal delivery - ALLERGIES Allergies/Adverse Reactions: Allergies Allergy/AdvReac Type Severity Reaction Status Date / Time grapefruit AdvReac Edema Verified 11/01/17 14:53 - MEDICATIONS Home Medications: Ambulatory Orders Medication Instructions Recorded Confirmed Pnv No.95/Ferrous Fum/Folic AC 1 each PO 11/01/17 [ Formula] - PHYSICAL EXAM AT DISCHARGE General Appearance: positive: No acute distress Eyes Bilateral: positive: Normal inspection, PERRL, EOMI Respiratory: positive: No respiratory distress Cardiovascular: negative: Tachycardia, Bradycardia Abdomen: positive: Non-tender, No distention, Other (uterus firm, below umbilicus). negative: Tenderness, Guarding, Rebound Neurologic/Psychiatric: positive: Oriented x3, CN's nml (2-12), Motor nml, Sensation nml, Mood/affect nml - LABS Result Diagrams: 03/19/21 05:40 - FOLLOW UP Follow Up: Follow up in clinic in 2 weeks. - TIME SPENT Time Spent in Discharge (Minutes): 20"
[2021-03-20] MEDS: DOCUSATE SODIUM 100 MG CAPSULE PO PRN (11:02)
[2021-03-20 12:54] VITALS: BP 100/56
== END 2021-03-20 18:00 | disposition home or self-care (01) | DRG 806 ==
LOC: WFO 04:10 → FBP 04:11 → WFO 05:03 → FBP 05:04
PROVIDERS: ADMIT Obstetrics & Gynecology; ATTEND Obstetrics & Gynecology
PROC: 10E0XZZ Delivery of Products of Conception, External Approach (ICD-10-PCS; principal; 2021-03-19)
PROC: 0KQM0ZZ Repair Perineum Muscle, Open Approach (ICD-10-PCS; 2021-03-19)
DX: O42.02 Full-term premature rupture of membranes, onset of labor within 24 hours of rupture (principal); O98.52 Other viral diseases complicating childbirth; Z37.0 Single live birth; A60.9 Anogenital herpesviral infection, unspecified; O70.1 Second degree perineal laceration during delivery; O99.824 Streptococcus B carrier state complicating childbirth; O48.0 Post-term pregnancy; O99.334 Smoking (tobacco) complicating childbirth; F17.210 Nicotine dependence, cigarettes, uncomplicated; Z3A.40 40 weeks gestation of pregnancy; Z79.899 Other long term (current) drug therapy
CPT/HCPCS: 36415; 84112; 85025; 86850; 86900; 86901; 99213; A9270; J7120